=== PATIENT | female | born 1975 ===

== ENCOUNTER 2018-09-10 10:27 | Emergency (ER) | payer OTHER ==
[2018-09-10 10:28] VITALS: BMI 31.6
[2018-09-10 10:32] VITALS: TEMP 98.2; O2SAT 99
--- NOTE | 2018-09-10 11:20 | ED PDOC ---
HPI: Abdomen Time Seen by Provider: 09/10/18 10:39 Chief Complaint (Nursing): Abdominal Pain Chief Complaint (Provider): Abdominal Pain History Per: Patient History/Exam Limitations: no limitations Onset/Duration Of Symptoms: Days (x2) Current Symptoms Are (Timing): Still Present Additional Complaint(s): Patient is a 43 y/o female with a PMHx of HTN who presents to the ED for evaluation of constant, lower abdominal pain for the past two days. Patient reports the pain radiates from her abdomen to her vaginal area. Patient complains of intermittent nausea, a dry mouth, an inflamed face, and general weakness. Of note, patient was diagnosed last week with an inflamed cyst in labia and was prescribed antibiotics. Patient also has a lower abdominal abscess, which she is currently on a course of antibiotics for. Patient denies urinary symptoms, vaginal bleeding or discharge, vomiting, diarrhea, and chest pain. PCP: Dr. Washington Zafar Past Medical History Reviewed: Historical Data, Nursing Documentation, Vital Signs Vital Signs: Last Vital Signs Temp 98.2 F 09/10/18 10:31 Pulse 72 09/10/18 10:31 Resp 16 09/10/18 10:31 BP 143/84 09/10/18 10:31 Pulse Ox 99 09/10/18 10:31 - Medical History PMH: HTN - Surgical History Surgical History: - Family History Family History: States: Unknown Family Hx - Immunization History Hx Tetanus Toxoid Vaccination: No Hx Influenza Vaccination: No Hx Pneumococcal Vaccination: No - Home Medications Home Medications: Ambulatory Orders Medication Instructions Recorded Clindamycin [Cleocin] 1 cap PO QID #28 cap 09/07/18 Clotrimazole 1% Vaginal [Lotrimin 1 gm VG BID #1 tube 09/08/18 1% Vaginal] - Allergies Allergies/Adverse Reactions: Allergies Allergy/AdvReac Type Severity Reaction Status Date / Time ibuprofen Allergy RASH Verified 09/10/18 11:06 Review of Systems ROS Statement: Except As Marked, All Systems Reviewed And Found Negative Constitutional: Positive for: Other (feels like face is inflamed) ENT: Positive for: Other (Dry Throat) Gastrointestinal: Positive for: Abdominal Pain (lower), Other (abscess of lower abdomen). Negative for: Nausea, Vomiting, Diarrhea Genitourinary Female: Positive for: Pelvic Pain (radiating from abdomen), Other (inflamed cyst in labia). Negative for: Dysuria, Frequency, Incontinence, Vaginal Discharge, Vaginal Bleeding Physical Exam - Reviewed Nursing Documentation Reviewed: Yes Vital Signs Reviewed: Yes - Physical Exam Appears: Positive for: Non-toxic, No Acute Distress Head Exam: Positive for: ATRAUMATIC, NORMAL INSPECTION, NORMOCEPHALIC Skin: Positive for: Normal Color, Warm, Dry Eye Exam: Positive for: EOMI, Normal appearance, PERRL Neck: Positive for: Normal, Painless ROM, Supple Cardiovascular/Chest: Positive for: Regular Rate, Rhythm. Negative for: Murmur Respiratory: Positive for: Normal Breath Sounds. Negative for: Respiratory Distress Gastrointestinal/Abdominal: Positive for: Soft, Tenderness (mild supraprubic) Back: Positive for: Normal Inspection. Negative for: L CVA Tenderness, R CVA Tenderness, Vertebral Tenderness Extremity: Positive for: Normal ROM. Negative for: Pedal Edema, Deformity Neurologic/Psych: Positive for: Alert, Oriented. Negative for: Motor/Sensory Deficits - Laboratory Results Result Diagrams: 09/10/18 11:17 09/10/18 11:17 - ECG O2 Sat by Pulse Oximetry: 99 (RA) Pulse Ox Interpretation: Normal - Progress Re-evaluation Time: 12:40 Condition: Re-examined, Improved Medical Decision Making Medical Decision Making: Time: 1103 Impression: Lower Abdominal Pain DDx includes but not limited to UTI, complications, ovarian cysts, fibroid, and endometriosis. Plan: EKG BMP Urine Urine Dipstick CBC Pelvis/Transvaginal US Time: 1115 Urine is clean. Negative for . Time: 1202 Transvaginal US FINDINGS: UTERUS: Measures 9.5 x 6.2 x 6.6 cm. Anteverted. Normal in size and appearance. Multiple uterine fibroids including intramural anterior fibroid measuring 1.5 x 1.5 x 1.3 cm, intramural anterior uterine fibroid measuring 1.4 x 1.4 x 1.1 cm, anterior uterine fibroid measuring 1.1 x 0.7 x 0.9 cm and posterior submucosal fibroid measuring 1.2 x 1.2 x 1.3 cm. ENDOMETRIUM: Measures 8 mm in diameter. Unremarkable. CERVIX: No cervical abnormality identified. RIGHT OVARY: Measures 2.8 x 1.9 x 1.9 cm. No solid mass. Normal flow. LEFT OVARY: Measures 4.3 x 1.8 x 2.8 cm. 2.6 x 2.3 x 2.8 cm involuting corpus luteal cyst. No solid mass. Normal flow. FREE FLUID: No significant free fluid noted. OTHER FINDINGS: None. IMPRESSION: Multiple uterine fibroids measuring up to 1.5 cm as above described. Involuting left corpus luteal cyst. Scribe Attestation: Documented by Ermias Barrett, acting as a scribe for Ruth Kim MD. Provider Scribe Attestation: All medical record entries made by the Scribe were at my direction and personally dictated by me. I have reviewed the chart and agree that the record accurately reflects my personal performance of the history, physical exam, medical decision making, and the department course for this patient. I have also personally directed, reviewed, and agree with the discharge instructions and disposition. Disposition - Clinical Impression Clinical Impression: Uterine fibroid, Ovarian cyst - Patient ED Disposition Is Patient to be Admitted: No Doctor Will See Patient In The: Office Counseled Patient/Family Regarding: Studies Performed, Diagnosis, Need For Followup - Disposition Referrals: Washington Zafar MD [Family Provider] - Disposition: Routine/Home Disposition Time: 12:59 Condition: GOOD Additional Instructions: AMIRA ABERU, thank you for letting us take care of you today. Your provider was Ruth Kim MD and you were treated for LOWER ABD PAIN. The emergency medical care you received today was directed at your acute symptoms. If you were prescribed any medication, please fill it and take as dir ected. It may take several days for your symptoms to resolve. Return to the Emergency Department if your symptoms worsen, do not improve, or if you have any other problems. Please contact your doctor or call one of the physicians/clinics you have been referred to that are listed on the Patient Visit Information form that is included in your discharge packet. Bring any paperwork you were given at discharge with you along with any medications you are taking to your follow up visit. Our treatment cannot replace ongoing medical care by a primary care provider outside of the emergency department. Thank you for allowing the [facility] team to be part of your care today. If you had an X-Ray or CT scan: A Radiologist will review the ED reading if any change in treatment is needed we will contact you. If you had a blood, urine, or wound culture: It will take several days for the results, if any change in treatment is needed we will contact you. If you had an STI test: It will take 48 hours for the results. Please call after 1 week if you have not heard back. Instructions: Ovarian Cysts, Uterine Fibroids Print Language: KHMER
[2018-09-10 11:33] LABS: BASO % 0.4 % (0.0-2.0); EOS % 0.5 % (0.0-4.0); LYMPH # 2.2 K/uL (1.0-4.3); LYMPH % 32.7 % (20.0-40.0); MEAN CELL VOLUME 81.4 fl (81.0-99.0); MEAN CORPUSCULAR HEMOGLOBIN 26.5 pg (27.0-31.0); MEAN CORPUSCULAR HGB CONC 32.6 g/dL (33.0-37.0); MEAN PLATELET VOLUME 7.1 fl (7.2-11.7); MONO # 0.4 K/uL (0.0-0.8); MONO % 5.8 % (0.0-10.0); NEUT # 4.1 K/uL (1.8-7.0); NEUT % 60.6 % (50.0-75.0); RBC 4.15 Mil/uL (3.80-5.20); RED CELL DISTRIBUTION WIDTH 14.8 % (11.5-14.5); WHITE BLOOD COUNT 6.7 K/uL (4.8-10.8)
[2018-09-10 11:43] LABS: BLOOD UREA NITROGEN 11 mg/dl (7-17); GFR NON-AFRICAN AMERICAN > 60
--- NOTE | 2018-09-10 12:30 | US ---
Date of service: 09/10/2018 HISTORY: lower abdominal pain COMPARISON: None available. TECHNIQUE: Grayscale, color Doppler and spectral evaluation the pelvis performed transabdominally and transvaginally. FINDINGS: UTERUS: Measures 9.5 x 6.2 x 6.6 cm. Anteverted. Normal in size and appearance. Multiple uterine fibroids including intramural anterior fibroid measuring 1.5 x 1.5 x 1.3 cm, intramural anterior uterine fibroid measuring 1.4 x 1.4 x 1.1 cm, anterior uterine fibroid measuring 1.1 x 0.7 x 0.9 cm and posterior submucosal fibroid measuring 1.2 x 1.2 x 1.3 cm. ENDOMETRIUM: Measures 8 mm in diameter. Unremarkable. CERVIX: No cervical abnormality identified. RIGHT OVARY: Measures 2.8 x 1.9 x 1.9 cm. No solid mass. Normal flow. LEFT OVARY: Measures 4.3 x 1.8 x 2.8 cm. 2.6 x 2.3 x 2.8 cm involuting corpus luteal cyst. No solid mass. Normal flow. FREE FLUID: No significant free fluid noted. OTHER FINDINGS: None. IMPRESSION: Multiple uterine fibroids measuring up to 1.5 cm as above described. Involuting left corpus luteal cyst.
[2018-09-10 13:18] VITALS: BP 113/68; PULSE 74; RESP 18
--- NOTE | 2018-09-11 10:01 | CARD ---
APPROVED REPORT Date of service: 09/10/2018 EKG Measurement Heart [id number] <Conclusion> Sinus bradycardia Otherwise normal ECG
== END 2018-09-10 13:00 | disposition home or self-care (01) ==
LOC: H.ER 10:27
DX: D25.9 Leiomyoma of uterus, unspecified (principal); N83.292 Other ovarian cyst, left side; I10 Essential (primary) hypertension

== ENCOUNTER 2018-09-17 10:46 | Emergency (ER) | payer OTHER ==
[2018-09-17 10:46] VITALS: BMI 31.6
[2018-09-17 11:33] VITALS: RESP 18
--- NOTE | 2018-09-17 11:58 | ED PDOC ---
Lower Extremity Pain/Injury Time Seen by Provider: 09/17/18 11:04 Chief Complaint (Nursing): Lower Extremity Problem/Injury Chief Complaint (Provider): BIlateral leg pain History Per: Patient, Director Client (Monique ([email or web address]) [phone]) History/Exam Limitations: no limitations Onset/Duration Of Symptoms: Days Additional History Per: Patient Additional Complaint(s): 43yo female comes complaining of bilateral leg pain x 2 weeks, worsening over the past 3 days. Patient states pain worsens with movement, including walking, moving toes, flexing feet or bending knees. Patient denies any injuries, history of infection or swelling. Patient additionally reports continued lower jaw pain after a recent right lower molar extraction on 08/28; patient completed a course of antibiotics and has not followed up with the dentist. Otherwise, no shortness of breath, chest pain, or palpitations. Past Medical History Reviewed: Historical Data, Nursing Documentation, Vital Signs Vital Signs: Last Vital Signs Temp 97 F L 09/17/18 11:00 Pulse 71 09/17/18 11:00 Resp 18 09/17/18 11:00 BP 131/87 09/17/18 11:00 Pulse Ox 99 09/17/18 11:00 - Medical History PMH: HTN Denies: Chronic Kidney Disease - Surgical History Surgical History: - Family History Family History: States: No Known Family Hx, Unknown Family Hx - Immunization History Hx Tetanus Toxoid Vaccination: No Hx Influenza Vaccination: No Hx Pneumococcal Vaccination: No - Home Medications Home Medications: Ambulatory Orders Medication Instructions Recorded Clindamycin [Cleocin] 1 cap PO QID #28 cap 09/07/18 Clotrimazole 1% Vaginal [Lotrimin 1 gm VG BID #1 tube 09/08/18 1% Vaginal] - Allergies Allergies/Adverse Reactions: Allergies Allergy/AdvReac Type Severity Reaction Status Date / Time ibuprofen Allergy RASH Verified 09/10/18 11:06 Review of Systems ROS Statement: Except As Marked, All Systems Reviewed And Found Negative Constitutional: Positive for: Other (diffuse muscle pain) ENT: Positive for: Other (right lower jaw pain) Cardiovascular: Negative for: Chest Pain, Palpitations Respiratory: Negative for: Shortness of Breath Musculoskeletal: Positive for: Leg Pain (bilateral lower leg pain) Neurological: Negative for: Weakness, Numbness Physical Exam - Reviewed Nursing Documentation Reviewed: Yes Vital Signs Reviewed: Yes - Physical Exam Appears: Positive for: Non-toxic Head Exam: Positive for: NORMAL INSPECTION Skin: Positive for: Warm, Dry. Negative for: Rash, Mottled Eye Exam: Positive for: EOMI, PERRL ENT: Positive for: Other (extraction site on right lower molar is well healing, moist gingiva, no swelling, fluctuance, bleeding, signs of infection or other complications noted. ). Negative for: Pharyngeal Erythema Neck: Positive for: Painless ROM, Supple Cardiovascular/Chest: Positive for: Regular Rate, Rhythm Respiratory: Positive for: Normal Breath Sounds Pulses-Dorsalis Pedis (L): 2+ Pulses-Dorsalis Pedis (R): 2+ Back: Positive for: Normal Inspection Extremity: Positive for: Normal ROM (FROM of all extremities without pain), Tenderness (tenderness to all muscle groups on bilateral lower extremities), Capillary Refill (< 2 seconds). Negative for: Pedal Edema, Calf Tenderness, Deformity, Swelling Lymphatic: Negative for: Adenopathy Neurological/Psych: Positive for: Awake, Alert, Oriented (x 3) - Laboratory Results Result Diagrams: 09/17/18 11:55 09/17/18 11:55 - ECG ECG: Positive for: Interpreted By Me, Viewed By Me ECG Rhythm: Negative for: Sinus Bradycardia, Sinus Tachycardia Interpretation Of Abn EKG: [id number] changes O2 Sat by Pulse Oximetry: 99 (RA) Pulse Ox Interpretation: Normal Medical Decision Making Medical Decision Making: Musculoskeletal pain No risk factors for DVT, no reports of recent immobilization Plan: -- Basic bloodwork R/o electrolyte abnormalities vs. infection DDimer to r/o DVT 1312 DDimer elevated, bilat US of LE ordered to r/o DVT EKG showing s1q3t3 changes, CT to r/o PE Time: 1656 --CT, PE and lower extremity Doppler US show no abnormality. Patient to take Tylenol for pain and follow up with outpatient clinic in one week. Scribe Attestation: Documented by Marcie Riddle, acting as a scribe for Bertha Dockery MD. Provider Scribe Attestation: All medical record entries made by the Scribe were at my direction and personally dictated by me. I have reviewed the chart and agree that the record accurately reflects my personal performance of the history, physical exam, medical decision making, and the department course for this patient. I have also personally directed, reviewed, and agree with the discharge instructions and disposition. Disposition - Clinical Impression Clinical Impression: Leg pain, bilateral - Disposition Disposition Time: 16:57 Condition: IMPROVED Additional Instructions: Take Tylenol for pain. Follow up with outpatient clinic if leg pain continues. Follow up in the dental clinic if you continue to have jaw pain. Instructions: Muscle and Bone Pain (DC) Forms: [email or web address] (Lao) Print Language: FRISIAN
[2018-09-17 12:09] LABS: BASO % 0.3 % (0.0-2.0); EOS % 0.9 % (0.0-4.0); LYMPH # 1.7 K/uL (1.0-4.3); LYMPH % 35.7 % (20.0-40.0); MEAN CELL VOLUME 81.5 fl (81.0-99.0); MEAN CORPUSCULAR HEMOGLOBIN 26.3 pg (27.0-31.0); MEAN CORPUSCULAR HGB CONC 32.3 g/dL (33.0-37.0); MEAN PLATELET VOLUME 6.9 fl (7.2-11.7); MONO # 0.3 K/uL (0.0-0.8); MONO % 6.3 % (0.0-10.0); NEUT # 2.8 K/uL (1.8-7.0); NEUT % 56.8 % (50.0-75.0); NRBC % 0.1 % (0.0-0.0); RBC 4.17 Mil/uL (3.80-5.20); RED CELL DISTRIBUTION WIDTH 15.1 % (11.5-14.5); WHITE BLOOD COUNT 4.9 K/uL (4.8-10.8)
[2018-09-17 12:23] LABS: BLOOD UREA NITROGEN 11 mg/dl (7-17); CALCIUM 9.1 mg/dL (8.4-10.2); GFR NON-AFRICAN AMERICAN > 60
[2018-09-17] MEDS ORDERED: Sodium Chloride 0.9% 50 ML IV ONE (13:46)
[2018-09-17] MEDS ORDERED: Iodixanol 320 MG/ML 100 ML BOTTLE IV ONE (13:46)
--- NOTE | 2018-09-17 15:52 | CT ---
Date of service: 09/17/2018 PROCEDURE: CT Chest with contrast (Pulmonary Angiogram) HISTORY: SOB and leg swelling COMPARISON: None available. TECHNIQUE: Axial computed tomography images were obtained of the chest in the pulmonary arterial phase of enhancement. Coronal and sagittal reformatted images were created and reviewed. Intravenous contrast dose: Radiation dose: Total exam DLP = 339.71 mGy-cm. This CT exam was performed using one or more of the following dose reduction techniques: Automated exposure control, adjustment of the mA and/or kV according to patient size, and/or use of iterative reconstruction technique. FINDINGS: PULMONARY ARTERIES: Unremarkable. No pulmonary embolism. AORTA: No acute findings. No thoracic aortic aneurysm. No aortic atherosclerotic calcification or mural plaque present. LUNGS: Unremarkable. No nodule, mass or pulmonary consolidation. PLEURAL SPACES: Unremarkable. No effusion or pneumothorax. HEART: Unremarkable. No cardiomegaly. No significant pericardial effusion. LYMPH NODES: No lymphadenopathy. BONES, CHEST WALL: Unremarkable. No fracture or destructive lesion OTHER FINDINGS: Unremarkable. IMPRESSION: Unremarkable CT pulmonary angiogram. No pulmonary embolus.
--- NOTE | 2018-09-17 16:45 | US ---
Date of service: 09/17/2018 PROCEDURE: Bilateral lower extremity venous duplex Doppler. HISTORY: r/o DVT COMPARISON: None available. TECHNIQUE: Bilateral common femoral, superficial femoral, popliteal and posterior tibial veins were evaluated. Flow was assessed with color Doppler, compressibility, assessment of phasic flow and augmentation response. FINDINGS: Good compressibility, augmentation, morphology and normal phasic venous blood flow identified at the bilateral common and superficial femoral as well as popliteal veins with the same features applying to the posterior tibial veins bilaterally. No sonographic evidence to suggest deep venous thrombosis bilateral lower extremities. OTHER FINDINGS: None. IMPRESSION: No sonographic evidence to suggest deep venous thrombosis bilateral lower extremities.
[2018-09-17 17:20] VITALS: BP 122/57; PULSE 75; TEMP 98.3; O2SAT 98
== END 2018-09-17 17:21 | disposition home or self-care (01) ==
LOC: H.ER 10:46
DX: M79.605 Pain in left leg (principal); M79.604 Pain in right leg; I10 Essential (primary) hypertension
CPT/HCPCS: 71275; 80048; 81025; 85025; 85378; 93970; 99284; Q9967